=== PATIENT | female | born 1990 | race Caucasian/White ===

== ENCOUNTER 2018-02-24 20:03 | Emergency (ER) | payer OTHER ==
[~2018-02-24] VITALS: Ht 154.9 cm; Wt 80.4 kg
[2018-02-24 21:27] LABS: APPEARANCE CLEAR ((CLEAR)); BILIRUBIN NEGATIVE; BLOOD LARGE; COLOR STRAW ((YELLOW)); GLUCOSE (STRIP) NEGATIVE; KETONES NEGATIVE; LEUKOCYTES NEGATIVE; NITRITE NEGATIVE; PROTEIN (STRIP) 30; SPECIFIC GRAVITY 1.009 (1.000-1.030); UROBILINOGEN 0.2 MG/DL (0.2-1.0)
[2018-02-24 21:30] LABS: BACTERIA NONE SEEN /HPF; EPITHELIAL CELLS NONE SEEN /HPF; MUCUS NONE SEEN /LPF; RED BLOOD CELLS 0-5 /HPF (0-5); UCUL ADDED? NO; WHITE BLOOD CELLS 0-5 /HPF (0-5)
[2018-02-24 21:35] LABS: HEMATOCRIT 40.1 % (36.0-46.0); HEMOGLOBIN 13.9 G/DL (11.9-15.5); MCH 32.4 PG (29.0-34.0); MCHC 34.7 G/DL (30.0-36.0); MCV 93.5 FL (83-99); PLATELET COUNT 196 K/uL (156-360); RBC DIS.WIDTH-CV 12.2 % (11.8-14.6); RBC DIS.WIDTH-SD 42.1 % (39-53); RED BLOOD COUNT 4.29 M/uL (3.80-5.20); WHITE BLOOD COUNT 9.2 K/uL (4.1-10.2)
[2018-02-24 21:39] LABS: AMPHETAMINE NEGATIVE (500 ng/mL); BARBITURATES NEGATIVE (200 ng/mL); BENZODIAZEPINES NEGATIVE (150 ng/mL); BUPRENORPHINE NEGATIVE (10 ng/mL); COCAINE NEGATIVE (150 ng/mL); METHADONE NEGATIVE (200 ng/mL); METHAMPHETAMINE NEGATIVE (500 ng/mL); OPIATES (MORPHINE) NEGATIVE (100 ng/mL); OXYCODONE NEGATIVE (100 ng/mL); PHENCYCLIDINE NEGATIVE (25 ng/mL); PROPOXYPHENE NEGATIVE (300 ng/mL); THC CANNABINOIDS NEGATIVE (50 ng/mL); TRICYCLIC ANTIDEPRESSANTS NEGATIVE (300 ng/mL)
[2018-02-24 21:42] LABS: CHLORIDE 106 mEq/L (99-109); POTASSIUM 4.1 mEq/L (3.7-5.4); SODIUM 140 mEq/L (136-147)
[2018-02-24 21:45] LABS: GLUCOSE 97 mg/dL (70-99)
[2018-02-24 21:47] LABS: TOTAL BILIRUBIN 0.2 mg/dL (0.0-1.0)
[2018-02-24 21:48] LABS: ALKALINE PHOSPHATASE 60 IU/L (3-129); GFR ESTIMATE (CALCULATED) > 59 mL/min/
[2018-02-24 21:49] LABS: UREA NITROGEN (BUN) 14 mg/dL (9-23)
[2018-02-24 21:50] LABS: AST (GOT) 20 IU/L (2-34)
[2018-02-24 21:51] LABS: ALT (GPT) 13 IU/L (3-49)
[2018-02-24 21:57] LABS: QUANTITATIVE HCG < 4.0 MIU/ML
[2018-02-24] MEDS ORDERED: ZOFRAN ODT4 MG PO (22:47)
[2018-02-24] MEDS ORDERED: FIORICET 50-301 EAC1 PO (22:47)
[2018-02-24 23:09] VITALS: BP 126/80
== END 2018-02-24 23:09 | disposition home or self-care (01) ==
LOC: EME 20:03
PROVIDERS: Physician Assistant
DX: R51 Headache (principal); M54.5 Low back pain; Z87.891 Personal history of nicotine dependence
CPT/HCPCS: 80053; 81003; 84702; 85027; 99281; 99284; J1885; J2765; J7030